=== PATIENT | female | born 1985 | race Caucasian/White ===

== ENCOUNTER 2018-06-15 05:09 | Inpatient (IN) ==
[~2018-06-15 05:09] MED LIST: OXYTOCIN 20 UNITS in RINGER'S SOLUTION,LACTATED 1,000 ML IV ONE; RINGER'S SOLUTION,LACTATED 1,000 ML IV PRN; ceFAZolin SODIUM/DEXTROSE,ISO 2 GM/50 ML BAG IV ONE
--- NOTE | 2018-06-15 07:12 | ANES ---
Anesthesia Pre Procedure Eval Vitals/Labs: Last Vital Signs Temp 36.6 C 06/15/18 06:03 Pulse 86 06/15/18 06:03 Resp 14 06/15/18 06:03 BP 116/59 06/15/18 06:03 Pulse Ox 94 06/15/18 06:03 HOME MEDICATIONS Vits96/Iron Fum/Folic [ S] 1 tab PO DAILY 05/24/14 [Last Taken 05/23/14 21:00] Allergies/Adverse Reactions: Allergies Allergy/AdvReac Type Severity Reaction Status Date / Time No Known Drug Allergies Allergy Mild Verified 06/15/18 06:08 grass pollen AdvReac Itching Verified 06/15/18 06:08 wheat AdvReac Itching Verified 06/15/18 06:08 - Planned Procedure Planned Procedure: Section with Bilateral Salpingectomy Medication List Reviewed:: Yes Allergies Verified: Yes Medical History (Last Reviewed 06/15/18 @ 07:11 by Jose Peterson CRNA) History of wisdom tooth extraction Onset Date: ~2007 Abnormal Pap smear of cervix Onset Date: ~09/2010 ASCUS +HRHPV Rash of hands Onset Date: ~08/24/12 right hand-eczema but may have tinea component 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 2015-repeat Family History (Last Reviewed 06/15/18 @ 07:11 by Jose Peterson CRNA) Father Hypertension Mother Hypothyroidism Spina bifida Grandfather Hypertension Asthma Chronic bronchitis Goiter Glaucoma Grandfather COPD (chronic obstructive pulmonary disease) Emphysema/COPD Grandmother Hypertension - Family Anesthesia History Family History:: no untoward family reactions to anesthesia, no familial bleeding tendencies, no family history of clotting disorders, no family history of premature - Airway/Neck/Teeth Within Normal Limits:: Yes Teeth Condition: intact Mallampatti Score: 2 Thyromental (T-M) distance: > 6 cm Mandibulo Hyoid distance: > 3 cm - Respiratory Respiratory Physical: lungs clear Smoking Status: Never smoker Discussed smoking cessation including day of surgery: No Sleep Apnea currently treated: No Sleep Apnea by current assessment: No Discussed Risks/Treatment of ASTER: No - Cardiovascular Tolerate Activity: Good Heart Sounds: S1 & S2, Regular - Anesthesia Assessment and Plan ASA Class: PS, II Anesthesia Type Plan: Block - Bilateral ultrasound guided TAP blocks for postop analgesia, Spinal
[2018-06-15] MEDS ORDERED: BISACODYL 10 MG SUPP.RECT RC PRN (09:25)
[2018-06-15] MEDS ORDERED: SIMETHICONE 80 MG TAB.CHEW PO PRN (09:25)
[2018-06-15] MEDS ORDERED: ONDANSETRON HCL/PF 2 MG/ML VIAL IV PRN (09:25)
[2018-06-15] MEDS ORDERED: SENNOSIDES 8.6 MG TABLET PO PRN (09:25)
[2018-06-15] MEDS ORDERED: oxyCODONE HCL/ACETAMINOPHEN 1 TAB TABLET PO PRN ×2 (09:25)
--- NOTE | 2018-06-15 09:34 | OR ---
Operative Report - Dictated Report Narrative: Indication: 33-year-old 3 para 2 with prior section 2 desires repeat section and sterilization via bilateral salpingectomy status: Planned Pre Operative Diagnosis: Intrauterine at 39 2/7 weeks, prior section 2, desires permanent sterilization via bilateral salpingectomy Post Operative Diagnosis: Same. Procedure: Repeat low transverse section. Bilateral salpingectomy. Abdominal scar revision - 16cm Surgeon: Kathe Maurer DO Buckle Gluer: OR Staff Anesthesia: Spinal, TAP block Estimated Blood Loss: 500 mL Urine Output: 400 mL clear urine Fluids Replacement: 1800 mL of crystalloid Drains: Boyd to gravity Surgical Complications: None Specimens: Placenta to freezer Findings: Male born at 0808 on 06/15/2016 with Apgars 9 and 9, weighing 3884 g in cephalic presentation. Normal uterus, tubes, ovaries Technique: The patient was taken to the operating room and placed in dorsal supine position with a left lateral tilt. After adequate spinal anesthesia, boyd catheter inserted, SCDs placed, and 2 g of Ancef given preoperatively, the previous scar was excised in an elliptical fashion and the abdominal cavity was entered using sharp and blunt dissection. Two rolled laps were placed in the pericolic gutters on either side of the uterus. A transverse incision was made in the lower uterine segment and extended laterally and upwardly with digital traction. Clear fluid was noted upon amniotomy. The was delivered easily. was screaming on delivery of head. The cord was clamped and cut and was handed off to awaiting mold finisher. The placenta was allowed to deliver spontaneously. The uterus was cleared of clot and debris. Uterine incision was closed with 0 Vicryl using a running stitch. A second imbricating layer was placed. Excellent hemostasis was noted. The right fallopian tube was identified and followed out to the fimbriated end. Using Kleppinger's, the mesosalpinx and proximal end of the tube, approximately 2 cm from the cornual region, was coagulated then transected with Metzenbaum scissors. The exact same was done on the patient's left side. Small bleeding on the left mesosalpinx was controlled with cautery. Excellent hemostasis was noted on both sides and the rolled laps were removed from the abdominal cavitiy. The peritoneum was closed with a running 3-0 Monocryl. The same suture was used to approximate the rectus and pyramidalis muscles. The fascia was closed with a running 0 Vicryl. The subcutaneous layer was closed with a running 3-0 Monocryl. The same suture was used to approximate the subdermal layer. The skin was closed with a running 4-0 Monocryl and Dermabond. Sponge, lap, needle, and instrument count were correct x 2. Disposition: To post anesthesia care unit in good condition History for MU Definition: * The number of deliveries resulting in a live the patient experienced prior to current hospitalization * The previous delivery of live twins or any live multiple gestation is considered one live event. *If primagravida or nulliparous is documented select zero for the number of previous live births. Live Events: 2
--- NOTE | 2018-06-15 09:36 | ANES ---
Post Anesthesia Discharge - Transfer of Care Transfer of Care handoff given to nurse: Yes - Discharge from PACU Discharge from PACU when meets criteria: Yes - Discharge to ASU Discharge to ASU-no complications/pt stable: Yes
--- NOTE | 2018-06-15 09:38 | ANES ---
Anesthesia Procedure Note Procedure Note: ANESTHESIA PROCEDURE NOTE Date of Procedure: 06/15/2018. Time of procedure: 929. Performed by: Jose Peterson CRNA [employer] Altitude [employer] Defense Gunner: None. Preprocedure diagnosis: Repeat , bilateral salpingectomy. Post procedure diagnosis: Same. Procedure: Bilateral ultrasound-guided transversus abdominis plane block for postop analgesia. Indications: The patient is a 33 -year-old female post section. Findings: See below. Details of the procedure: ChloraPrep was used on the patient's abdomen and the procedure was performed under sterile technique. The right abdominal fascial layer between the internal oblique muscle and the transversus abdominis muscles was identified under ultrasound guidance. A 21-gauge 4 inch block needle was inserted under ultrasound guidance to the target fascial plane. 15 mL's of 0.5% bupivacaine plus epinephrine 1:200,000 was injected after negative aspiration for blood. The needle was removed intact and the procedure was then repeated at the left side. No complications were noted. The images were retained in the hospital medical database . EBL: Minimal. Fluids: N/A. Specimen: N/A. Post procedure condition: The patient tolerated the procedure well. No complications were noted. Thank you for this consultation. Jose Peterson CRNA
--- NOTE | 2018-06-15 09:51 | ANES ---
Post Anesthesia Assessment - Vital Signs Vitals: Last Vital Signs Temp 36.5 C 06/15/18 09:40 Pulse 81 06/15/18 09:40 Resp 12 06/15/18 09:40 BP 124/55 06/15/18 09:40 Pulse Ox 100 06/15/18 09:40 Airway Patency: Normal - Mental Status Level Of Consciousness: Awake - Pain Level Pain Score: 0 - N/V Assessment Nausea/Vomiting Presence: None Dehydration:: No
[2018-06-15] MEDS: ACETAMINOPHEN 325 MG TABLET PO PRN ×3 (12:11→21:53)
[2018-06-15] MEDS: IBUPROFEN 800 MG TABLET PO PRN ×2 (15:29→21:12)
[2018-06-15] MEDS: ENOXAPARIN SODIUM 40 MG/0.4 ML SYRG SC SCH (17:52)
[2018-06-15] MEDS: DOCUSATE SODIUM 100 MG CAPSULE PO SCH (21:12)
[2018-06-16] MEDS: ACETAMINOPHEN 325 MG TABLET PO PRN ×4 (01:55→16:28)
[2018-06-16] MEDS: IBUPROFEN 800 MG TABLET PO PRN ×3 (05:04→19:57)
[2018-06-16] MEDS: DOCUSATE SODIUM 100 MG CAPSULE PO SCH ×3 (07:54→21:54)
--- NOTE | 2018-06-16 09:02 | PN ---
Subjective - Date and Time Seen Date: 06/16/18 Time: 09:02 Objective - Vitals Vitals: Last Vital Signs Temp 36.3 C 06/16/18 07:30 Pulse 84 06/16/18 07:30 Resp 20 06/16/18 07:30 BP 119/56 06/16/18 07:30 Pulse Ox 98 06/16/18 07:30 Patient denies complaints. Tolerating regular diet. Ambulating without difficulty. Pain well controlled. Lochia wnl. Abdomen - soft, appropriately tender Incision - clean, dry, intact Uterus - firm, at umbilicus -1 No calf tenderness Impression: Post op day #1 s/p repeat section. Bilateral salpingectomy. Abdominal scar revision. Plan: Continue routine post-operative/ care Cauti Physician Documentation - Urinary Catheter Management Urethral (Kauffman) Date of Insertion: 06/15/18 Time of Insertion: 07:45 Date of Removal: 06/15/18 Time of Removal: 20:05
[2018-06-16] MEDS: PRENATAL VITS96/IRON FUM/FOLIC 1 TAB TABLET PO SCH (11:07)
[2018-06-16] MEDS: ENOXAPARIN SODIUM 40 MG/0.4 ML SYRG SC SCH (18:08)
[2018-06-17] MEDS: ACETAMINOPHEN 325 MG TABLET PO PRN ×2 (00:50→06:06)
[2018-06-17] MEDS: IBUPROFEN 800 MG TABLET PO PRN ×2 (02:01→08:03)
[2018-06-17 07:22] VITALS: BP 118/72
[2018-06-17] MEDS: DOCUSATE SODIUM 100 MG CAPSULE PO SCH (08:03)
[2018-06-17] MEDS: PRENATAL VITS96/IRON FUM/FOLIC 1 TAB TABLET PO SCH (08:03)
--- NOTE | 2018-06-17 13:32 | PN ---
Subjective - Date and Time Seen Date: 06/17/18 Time: 13:30 Objective - Vitals Vitals: Last Vital Signs Temp 36.1 C 06/17/18 07:19 Pulse 87 06/17/18 07:19 Resp 16 06/17/18 07:19 BP 118/72 06/17/18 07:19 Pulse Ox 97 06/17/18 07:19 Patient denies complaints. Ambulating well. Tolerating regular diet. Pain well controlled. Lochia wnl. Breast-feeding Abdomen - soft, appropriately tender Incision - clean, dry, intact Uterus - firm, at umbilicus -2 No calf tenderness Impression: Post op day #2 s/p repeat section. Bilateral salpingectomy. Abdominal scar revision. Patient desires early discharge Plan: Continue routine post-operative/ care. Routine discharge instructions given. Cauti Physician Documentation - Urinary Catheter Management Urethral (Kauffman) Date of Insertion: 06/15/18 Time of Insertion: 07:45 Date of Removal: 06/15/18 Time of Removal: 20:05
== END 2018-06-17 10:15 | disposition home or self-care (01) | DRG 785 ==
LOC: OB 05:09
PROVIDERS: ADMIT Obstetrics & Gynecology; ATTEND Obstetrics & Gynecology
CPT/HCPCS: 59025; 64486; 88302